=== PATIENT | male | born 1970 ===

== ENCOUNTER 2021-02-23 15:08 | Emergency (ER) | payer MEDICARE | END 2021-02-23 18:13 | disposition left against medical advice (07) | LOC: ED 15:08 | DX: R19.7 Diarrhea, unspecified (principal); Z53.21 Procedure and treatment not carried out due to patient leaving prior to being seen by health care provider ==

== ENCOUNTER 2021-04-14 14:41 | Emergency (ER) | payer MEDICARE ==
--- NOTE | 2021-04-14 15:14 | Event Note ---
ED Screening Note Date of service: 04/14/21 Time: 15:11 ED Screening Note: 51-year-old male patient presents to the emergency department with landlord/caregiver who states that patient has been acting very different this morning she states that patient has been very forgetful, and doing things like putting objects into the microwave that were not supposed to be there, seeing things and people that were not there. In talking to people who are not there. R states the patient has never had this type of thing happen before. Patient on assessment noted to be awake alert oriented x3, he is able to state that he has been acting weird today. No unilateral weakness noted, no pronator drift noted, no facial droop noted, no changes in gait noted. This initial assessment/diagnostic orders/clinical plan/treatment(s) is/are subject to change based on patients health status, clinical progression and re- assessment by fellow clinical providers in the ED. Further treatment and workup at subsequent clinical providers discretion. Patient/guardian urged not to elope from the ED as their condition may be serious if not clinically assessed and managed. Initial orders include:
--- NOTE | 2021-04-14 15:56 | XRay Report ---
. CHEST 1 VIEW INDICATION: chest pain. COMPARISON: None. FINDINGS: Support devices: None. Heart: Normal. Lungs/Pleura: Chronic interstitial type changes are seen in the right upper lung with associated volu me loss. There is also mild scarring at the left lung apex. The lungs are mildly hyperinflated. No co nsolidation, effusion, or pneumothorax. IMPRESSION: 1. No acute findings. Signer Name: Ezekiel High MD Signed: 04/14/2021 3:52 PM Workstation Name: [id number]
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
--- NOTE | 2021-04-14 16:03 | Emergency Department Report ---
<ADRIANE RAMEY - Last Filed: 04/15/21 17:48> ED Psych HPI - General Chief Complaint: Neuro Symptoms/Deficit Stated Complaint: ACTING DIFFERENT Time Seen by Provider: 04/14/21 15:33 - Related Data Home Medications Medication Instructions Recorded Confirmed Last Taken Docusate Sodium [Dok] 100 mg PO QDAY 04/15/21 04/15/21 Unknown Ergocalciferol [Vitamin D2] 1 cap PO QWEEK 04/15/21 04/15/21 Unknown Famotidine [Pepcid] 10 mg PO QDAY 04/15/21 04/15/21 Unknown Phenytoin [Dilantin] 100 mg PO BID 04/15/21 04/15/21 Unknown QUEtiapine [SEROquel] 100 mg PO QDAY 04/15/21 04/15/21 Unknown Sertraline [Zoloft] 100 mg PO HS 04/15/21 04/15/21 Unknown Venlafaxine [Effexor] 75 mg PO TID 04/15/21 04/15/21 Unknown cephALEXin [Keflex] 500 mg PO Q12HR 04/15/21 04/15/21 Unknown metHOTREXate sodium [Methotrexate] 10 mg PO QWEEK 04/15/21 04/15/21 Unknown traZODone [Desyrel] 100 mg PO QHS 04/15/21 04/15/21 Unknown Allergies Allergy/AdvReac Type Severity Reaction Status Date / Time No Known Allergies Allergy Verified 04/15/21 14:41 ED Past Medical Hx - Medications Home Medications: Home Medications Medication Instructions Recorded Confirmed Last Taken Type Docusate Sodium [Dok] 100 mg PO QDAY 04/15/21 04/15/21 Unknown History Ergocalciferol [Vitamin D2] 1 cap PO QWEEK 04/15/21 04/15/21 Unknown History Famotidine [Pepcid] 10 mg PO QDAY 04/15/21 04/15/21 Unknown History Phenytoin [Dilantin] 100 mg PO BID 04/15/21 04/15/21 Unknown History QUEtiapine [SEROquel] 100 mg PO QDAY 04/15/21 04/15/21 Unknown History Sertraline [Zoloft] 100 mg PO HS 04/15/21 04/15/21 Unknown History Venlafaxine [Effexor] 75 mg PO TID 04/15/21 04/15/21 Unknown History cephALEXin [Keflex] 500 mg PO Q12HR 04/15/21 04/15/21 Unknown History metHOTREXate sodium [Methotrexate] 10 mg PO QWEEK 04/15/21 04/15/21 Unknown History traZODone [Desyrel] 100 mg PO QHS 04/15/21 04/15/21 Unknown History ED Medical Decision Making - Lab Data Result diagrams: 04/14/21 15:48 04/14/21 15:48 ED Disposition Clinical Impression: Altered mental status Disposition: 01 HOME / SELF CARE / HOMELESS Is pt being admited?: No Does the pt Need Aspirin: No Condition: Stable Additional Instructions: OUTPATIENT MENTAL HEALTH RESOURCES [facility] Tonio Vasquez MD: [address] [place] [address] [place] [address] [place] [facility]: [employer] [address] [place] [address] [place] [address] [phone] [facility]: [facility]: [address] [facility] [place] [address] [facility] [id number] [place] [facility]: John Dodge MD: [address] [facility] [address] [facility] [id number] [facility]: [address] [place], [place] [id number] [phone] [place] CRISIS AND ACCESS LINE: In case of an emergency, please contact the following numbers: [place] Crisis and Access Line: Number: Crisis Text Line: (Text START) Number: 717393 Suicide Prevention Line: Number: Emergency Number: 911 SUBSTANCE ABUSE PROGRAMS: [facility]: Location: [place], [place] [facility] Address: [address] [place] [address] [facility]: Address: [address] [place], [place] [address] [facility]: Address: [address] [place] [address] [facility] [place]: Address: [address] [place] [address] [facility] Address: [address] [place] [address]. Please contact above numbers to attempt placement into free based program. Medicaid Programs: [facility]: Address: [address] [place] [address] [facility]: Address: [address] [place] [address] Referrals: LORELEI KOROMA MD [Primary Care Provider] - 3-5 Days <NORIS LARSON - Last Filed: 04/16/21 22:52> ED Psych HPI - General Source: patient, family Mode of arrival: Ambulatory - History of Present Illness Initial Comments: Patient is 51 years old male with history of Crohn's disease. Unknown past psychiatric history. Patient brought to the emergency room by his caregiver or landlord for evaluation of strange behavior. Landlord stated that patient became more forgetful and acting not right. She mentioned that he is putting stuff that should not be in a microwave in the microwave. Patient is alert, oriented x3 in no acute distress. Patient is jumping from one statement to another statement. He is not focus. He denies suicidal or homicidal ideation. He also denied hearing voices or seeing things that are not there. Patient stated that he started on medication yesterday and he believes this is what is causing his problem but he does not remember the name of the medication. Complaint: altered mental status ED Review of Systems ROS: Stated complaint: ACTING DIFFERENT Other details as noted in HPI Comment: All other systems reviewed and negative Constitutional: denies: chills, fever Respiratory: denies: cough, shortness of breath, SOB with exertion Cardiovascular: denies: chest pain, palpitations Gastrointestinal: denies: abdominal pain, nausea, vomiting Musculoskeletal: denies: back pain Neurological: denies: headache, weakness Psychiatric: denies: auditory hallucinations, visual hallucinations, homicidal thoughts, suicidal thoughts ED Physical Exam - General Limitations: No Limitations General appearance: alert, in no apparent distress - Head Head exam: Present: atraumatic, normocephalic, normal inspection - Eye Eye exam: Present: normal appearance - ENT ENT exam: Present: normal exam, normal orophraynx, mucous membranes moist - Neck Neck exam: Present: normal inspection, full ROM. Absent: tenderness, meningismus - Respiratory Respiratory exam: Present: normal lung sounds bilaterally - Cardiovascular Cardiovascular Exam: Present: regular rate, normal rhythm, normal heart sounds - GI/Abdominal GI/Abdominal exam: Present: soft, normal bowel sounds. Absent: distended, tenderness, guarding, rebound, rigid, organomegaly, mass, bruit, pulsatile mass, hernia - Extremities Exam Extremities exam: Present: normal inspection, full ROM, normal capillary refill. Absent: tenderness, pedal edema, joint swelling, calf tenderness - Back Exam Back exam: Present: normal inspection, full ROM. Absent: CVA tenderness (R), CVA tenderness (L) - Neurological Exam Neurological exam: Present: alert, oriented X3, CN II-XII intact - Psychiatric Psychiatric exam: Present: normal mood - Skin Skin exam: Present: warm, intact, normal color ED Course Vital Signs 04/14/21 04/14/21 04/14/21 14:56 16:23 16:25 Temperature 98.7 F Pulse Rate 106 H 84 Respiratory 18 17 16 Rate Blood Pressure Blood Pressure 106/76 [Right] O2 Sat by Pulse 96 99 99 Oximetry 04/14/21 04/14/21 04/14/21 16:28 16:29 16:31 Temperature 98.0 F Pulse Rate 81 81 74 Respiratory 18 22 Rate Blood Pressure 106/79 Blood Pressure 106/74 [Right] O2 Sat by Pulse 99 99 Oximetry 04/14/21 04/14/21 04/14/21 16:45 17:01 17:15 Temperature Pulse Rate 81 90 77 Respiratory 14 14 22 Rate Blood Pressure 106/79 105/74 105/74 Blood Pressure [Right] O2 Sat by Pulse 97 97 97 Oximetry 04/14/21 04/14/21 04/14/21 17:31 17:45 18:01 Temperature Pulse Rate 154 H Respiratory Rate Blood Pressure 105/74 105/74 101/63 Blood Pressure [Right] O2 Sat by Pulse 97 95 96 Oximetry 04/14/21 04/14/21 04/14/21 18:03 19:01 20:01 Temperature Pulse Rate Respiratory Rate Blood Pressure 101/63 107/67 101/74 Blood Pressure [Right] O2 Sat by Pulse 96 96 97 Oximetry 04/14/21 04/14/21 04/14/21 21:01 22:01 23:57 Temperature Pulse Rate Respiratory 12 Rate Blood Pressure 94/71 102/73 103/76 Blood Pressure [Right] O2 Sat by Pulse 97 97 Oximetry 04/15/21 04/15/21 04/15/21 00:41 01:01 02:01 Temperature Pulse Rate 62 73 71 Respiratory 13 19 21 Rate Blood Pressure 103/76 112/67 89/54 Blood Pressure [Right] O2 Sat by Pulse 96 96 Oximetry 04/15/21 04/15/21 04/15/21 03:01 04:01 05:01 Temperature Pulse Rate 69 64 63 Respiratory 23 19 18 Rate Blood Pressure 106/50 90/63 90/63 Blood Pressure [Right] O2 Sat by Pulse 96 96 97 Oximetry 04/15/21 04/15/21 04/15/21 05:17 06:01 07:29 Temperature 97.6 F Pulse Rate 74 78 Respiratory 21 20 Rate Blood Pressure 105/74 95/70 95/70 Blood Pressure [Right] O2 Sat by Pulse 98 96 81 L Oximetry 04/15/21 04/15/21 04/15/21 08:12 09:00 09:56 Temperature 97.9 F Pulse Rate Respiratory 16 Rate Blood Pressure 92/61 95/68 Blood Pressure [Right] O2 Sat by Pulse 82 L 98 Oximetry 04/15/21 04/15/21 04/15/21 10:00 11:00 12:01 Temperature Pulse Rate 74 80 97 H Respiratory 12 21 21 Rate Blood Pressure 95/68 105/70 104/76 Blood Pressure [Right] O2 Sat by Pulse 88 97 97 Oximetry 04/15/21 04/15/21 04/15/21 13:01 14:01 15:01 Temperature Pulse Rate 77 69 64 Respiratory 17 22 15 Rate Blood Pressure 97/65 101/72 101/72 Blood Pressure [Right] O2 Sat by Pulse 98 97 97 Oximetry 04/15/21 04/15/21 04/15/21 16:01 17:01 18:00 Temperature 98.0 F Pulse Rate 57 L 63 Respiratory 23 22 Rate Blood Pressure 101/72 101/72 Blood Pressure [Right] O2 Sat by Pulse 99 97 Oximetry ED Medical Decision Making - Lab Data Result diagrams: 04/14/21 15:48 04/14/21 15:48 - Radiology Data Radiology results: report reviewed - Medical Decision Making Patient is 51 years old male with history of Crohn's disease. Unknown past psychiatric history. Patient brought to the emergency room by his caregiver or landlord for evaluation of strange behavior. Landlord stated that patient became more forgetful and acting not right. She mentioned that he is putting stuff that should not be in a microwave in the microwave. Patient is alert, oriented x3 in no acute distress. Patient is jumping from one statement to another statement. He is not focus. He denies suicidal or homicidal ideation. He also denied hearing voices or seeing things that are not there. Patient stated that he started on medication yesterday and he believes this is what is causing his problem but he does not remember the name of the medication. Patient remained stable in the ER with a stable vital sign. CT brain is negative for acute finding. Chest x-ray is unremarkable. Labs reviewed and is unremarkable. Patient is medically cleared to be evaluated by psychiatric team. Critical care attestation.: If time is entered above; I have spent that time in minutes in the direct care of this critically ill patient, excluding procedure time. ED Disposition Is pt being admited?: No
[2021-04-14 16:47] LABS: Basophils # (Auto) 0.2 K/mm3 (0.0-0.1); Basophils % (Auto) 1.9 % (0.0-1.8); Eosinophils # (Auto) 0.2 K/mm3 (0.0-0.4); Eosinophils % (Auto) 2.2 % (0.0-4.3); Hematocrit 34.7 % (35.5-45.6); Lymphocytes # (Auto) 1.3 K/mm3 (1.2-5.4); Lymphocytes % (Auto) 15.1 % (13.4-35.0); Mean Corpuscular HGB Conc 34 % (32-34); Mean Corpuscular Volume 90 fl (84-94); Monocytes # (Auto) 0.6 K/mm3 (0.0-0.8); Monocytes % (Auto) 6.3 % (0.0-7.3); Platelet Count 424 K/mm3 (140-440); Red Blood Count 3.84 M/mm3 (3.65-5.03); Red Cell Distribution Width 14.8 % (13.2-15.2)
[2021-04-14 17:06] LABS: Alanine Aminotransferase 10 units/L (7-56); Albumin 3.9 g/dL (3.9-5); Blood Urea Nitrogen 18 mg/dL (9-20); Calcium 8.9 mg/dL (8.4-10.2); Hemolysis Index 13
[2021-04-14 17:11] LABS: BUN/Creatinine Ratio 30
[2021-04-14] MEDS ORDERED: POTASSIUM CHLORIDE ER 20 MEQ TAB PO ONE (17:33)
[2021-04-15 01:16] LABS: Amphetamine Screen,Urine PRESUMPTIVE POSITIVE; Benzodiazepines Screen,Urine PRESUMPTIVE NEGATIVE; Cannabinoid Screen,Urine PRESUMPTIVE NEGATIVE; Cocaine Screen,Urine PRESUMPTIVE NEGATIVE; Methadone Screen,Urine PRESUMPTIVE POSITIVE; Opiate Screen,Urine PRESUMPTIVE NEGATIVE
[2021-04-15 01:19] LABS: Bilirubin,Urine Negative (Negative); Blood,Urine Negative (Negative); Color,Urine Colorless (Yellow)
[2021-04-15 01:20] LABS: Protein,Urine <15 mg/dL mg/dL (Negative); Urobilinogen,Urine < 2.0 mg/dL (<2.0); WBC,Urine < 1.0 /HPF (0.0-6.0)
--- NOTE | 2021-04-15 09:17 | Emergency Department Report ---
Blank Doc - Documentation Documentation: Patient has no complaints this morning. He is not suicidal or homicidal. He is awaiting psychiatric evaluation and disposition. There were no events throughout the course of the evening. He has been eating well.
[2021-04-15] MEDS ORDERED: CALCIUM CARBONATE 500 MG TAB CHEW PO ONE (11:23)
[2021-04-15 15:11] VITALS: BP 101/72
== END 2021-04-15 18:05 | disposition home or self-care (01) ==
LOC: ED 14:41
DX: R41.82 Altered mental status, unspecified (principal); Z20.822 Contact with and (suspected) exposure to COVID-19
CPT/HCPCS: 36415; 70450; 71045; 80053; 80307; 81001; 84484; 85025; 99284; U0003; 80320; G0480